=== PATIENT | male | born 1995 | race Hispanic/Latino ===

== ENCOUNTER → 2021-10-15 | Outpatient (CLI) | payer OTHER | LOC: RAH 13:24 | PROVIDERS: ATTEND Family Medicine | DX: M25.561 Pain in right knee (principal); S89.91XD Unspecified injury of right lower leg, subsequent encounter; S83.241A Other tear of medial meniscus, current injury, right knee, initial encounter; S83.281A Other tear of lateral meniscus, current injury, right knee, initial encounter | CPT/HCPCS: 73721 ==